=== PATIENT | female | born 1955 | race Caucasian/White ===

== ENCOUNTER 2020-02-28 23:46 | Inpatient (IN) | payer MEDICARE ==
[2020-02-29 00:21] LABS: #Eosinphils 0.1 thou/uL (0.0-0.7); #Lymphocytes 2.2 thou/uL (1.20-3.40); #Monocytes 0.6 thou/uL (0.11-0.59); #Neutrophils 6.7 thou/uL (1.40-6.50); %Basophils 0.5 % (0.0-1.0); %Eosinophils 0.8 % (0.0-10.0); %Monocytes 5.8 % (0.0-10.0); %Neutrophils 70.1 % (42.0-75.0); Hemoglobin 11.7 g/dL (12.0-16.0); Mean Corpuscular HGB CONC 34.5 g/dL (32.0-36.0); Mean Corpuscular Hemoglobin 32.4 pg (27.0-31.0); Platelet Count 167 thou/uL (130-400); RBC Distribution Width 11.4 % (11.5-14.5); Red Blood Cell (RBC) Count 3.61 mill/uL (4.20-5.40); White Blood Cell (WBC) Count 9.5 thou/uL (4.8-10.8)
[2020-02-29] MEDS ORDERED: Morphine 4 MG/ML VIAL ONE ×2 (00:24→01:06)
[2020-02-29 00:47] LABS: ALT (SGPT) 31 U/L (8-55); AST (SGOT) 67 U/L (5-34); Albumin 3.3 g/dL (3.4-4.8); Alkaline Phosphatase 55 U/L (40-110); Anion Gap 12 mmol/L (10-20); BUN (Urea Nitrogen) 11 mg/dL (9.8-20.1); Bilirubin, Total 0.5 mg/dL (0.2-1.2); Calc. Creatinine Clearance 0 mL/min (70-130); Calcium 6.8 mg/dL (7.8-10.44); Carbon Dioxide 18 mmol/L (23-31); Chloride 114 mmol/L (98-107); Glucose 83 mg/dL (80-115); Potassium 3.2 mmol/L (3.5-5.1); Protein, Total 5.3 g/dL (6.0-8.3); Sodium 141 mmol/L (136-145)
[2020-02-29 05:41] LABS: CKMB 75.6 ng/mL (0-6.6)
[2020-02-29 05:51] VITALS: BMI 29.2
[2020-02-29 06:34] LABS: Troponin I 14.255 ng/mL (< 0.028)
[2020-02-29] MEDS ORDERED: cloNIDine 0.1 MG TAB PO PRN (06:44)
[2020-02-29] MEDS ORDERED: Ondansetron PF 4 MG/2 ML Vial IVP PRN (06:44)
[2020-02-29] MEDS ORDERED: Acetaminophen 325 MG TAB PO PRN (06:44)
[2020-02-29] MEDS ORDERED: Promethazine HCl 12.5 MG in Sodium Chloride 0.9% 50 ML IVPB PRN (06:44)
[2020-02-29] MEDS ORDERED: HYDROcodone/Acetaminophen 5/325 mg Tablet PO PRN (06:44)
[2020-02-29] MEDS ORDERED: Labetalol HCl 100 MG/20 ML VIAL SLOW IVP PRN (06:44)
[2020-02-29] MEDS ORDERED: hydrALAZINE 20 MG/ML VIAL SLOW IVP PRN (06:44)
[2020-02-29] MEDS ORDERED: Electrolyte Replacement Protocol 1 EACH FS PRN (06:45)
[2020-02-29] MEDS ORDERED: Nitroglycerin 0.4 MG TAB (25 Tab Bottle) SL PRN (06:47)
--- NOTE | 2020-02-29 06:52 | PDOC.HHP ---
Hospitalist HPI - History of Present Illness Chest/back pain History of Present Illness: Patient is a 64 year old female with PMH hypothyroidism who presents as transfer from [facility] via EMS for chest pain. patient reports she has had chest pain for 3 nights. substernal, radiates to back, denies fever/sob/cough, does have nausea and dizziness. At outside ED, patient found to have troponin of 13, EKG NSR, given 325mg aspirin and lovenox 86mg SQ and transferred here for further workup and care. she had a stress test 10+ years ago that was negative, she has never seen a formal wear rental clerk. she has a family history of cardiac problems. here, troponin still elevated, patient pain improved /w nitropaste and toradol, patient admitted for further workup of chest pain and elevated cardiac enzymes. Hospitalist ROS - Review of Systems Constitutional: denies: fever, chills, sweats, weakness, malaise, other Eyes: denies: pain, vision change, conjunctivae inflammation, eyelid inflammation, redness, other ENT: denies: ear pain, ear discharge, nose pain, nose discharge, nose conge stion, mouth pain, mouth swelling, throat pain, throat swelling, other Respiratory: denies: cough, dry, shortness of breath, hemoptysis, SOB with excertion, pleuritic pain, sputum, wheezing, other Cardiovascular: reports: chest pain. denies: palpitations, orthopnea, paroxysmal noc. dyspnea, edema, light headedness, other Gastrointestinal: denies: nausea, vomiting, abdominal pain, diarrhea, constipation, melena, hematochezia, other Genitourinary: denies: dysuria, frequency, incontinence, hematuria, retention, other Musculoskeletal: denies: neck pain, shoulder pain, arm pain, back pain, hand pain, leg pain, foot pain, other Skin: denies: rash, lesions, wyatt, bruising, other Neurological: denies: weakness, numbness, incoordination, change in speech, confusion, seizures, other All other systems reviewed; all pertinent +/- noted in HPI/Subj - Medication Medications: Euthyrox ThuFeb 28, 2020 23:57 JESSICA iDck, Bobby tablet : Strength - 100 mcg : ORAL Patient Dose: 100 mcg Oral once a day. meloxicam ThuFeb 28, 2020 23:57 JESSICA Dick Jonathan tablet : Strength - 7.5 mg : ORAL Patient Dose: 7.5 mg Oral 2 times a day. cyclobenzaprine ThuFeb 28, 2020 23:58 JESSICA Dick Jonathan tablet : Strength - 10 mg : ORAL Patient Dose: 5 mg Oral As Needed. Benkelman 3 capsule ThuFeb 28, 2020 23:59 JESSICA Dick Jonathan capsule : ORAL Patient Dose: 500 mg Oral 2 times a day. vitamin B complex oral ThuFeb 28, 2020 23:59 JESSICA Dick Jonathan capsule : ORAL Patient Dose: 1 cap(s) Oral once a day. Vitamin C chewable tablet ThuFeb 29, 2020 00:00 JESSICA Dick Jonathan tablet,chewable : Strength - 500 mg : ORAL Patient Dose: 500 mg Oral once a day. Hospitalist History - Past Medical History Other Medical History: hypothyroidism djd - Past Surgical History Other Surgical History: Breast implants (1987) Partial hysterectomy (1989), Laminectomy (2003). - Family History Family History: reports: cardiac disorder - Social History Smoking Status: Former smoker - Exam General Appearance: NAD, awake alert Eye: PERRL, anicteric sclera ENT: normocephalic atraumatic, no oropharyngeal lesions, moist mucosa Neck: supple, symmetric, no JVD, no thyromegaly, no lymphadenopathy, no carotid bruit Heart: RRR, no murmur, no gallops, no rubs, normal peripheral pulses Respiratory: CTAB, no wheezes, no rales, no ronchi, normal chest expansion, no tachypnea, normal percussion Gastrointestinal: soft, non-tender, non-distended, normal bowel sounds, no palpable masses, no hepatomegaly, no splenomegaly, no bruit Extremities: no cyanosis, no clubbing, no edema Skin: normal turgor, no lesions, no rashes Neurological: cranial nerve grossly intact, normal sensation to touch, no weakness, no focal deficits, no new deficit Musculoskeletal: normal tone, normal strength, no muscle wasting Psychiatric: normal affect, normal behavior, A&O x 3 Hospitalist Results - Labs Result Diagrams: 02/29/20 00:13 02/29/20 00:13 Lab results: WBC 9.5 thou/uL (4.8-10.8) 02/29/20 00:13 Hgb 11.7 g/dL (12.0-16.0) L 02/29/20 00:13 Hct 33.9 % (36.0-47.0) L 02/29/20 00:13 MCV 94.0 fL (78.0-98.0) 02/29/20 00:13 Plt Count 167 thou/uL (130-400) 02/29/20 00:13 Neutrophils % 70.1 % (42.0-75.0) 02/29/20 00:13 Sodium 141 mmol/L (136-145) 02/29/20 00:13 Potassium 3.2 mmol/L (3.5-5.1) L 02/29/20 00:13 Chloride 114 mmol/L (98-107) H 02/29/20 00:13 Carbon Dioxide 18 mmol/L (23-31) L 02/29/20 00:13 BUN 11 mg/dL (9.8-20.1) 02/29/20 00:13 Creatinine 0.58 mg/dL (0.6-1.1) L 02/29/20 00:13 Glucose 83 mg/dL (80-115) 02/29/20 00:13 Calcium 6.8 mg/dL (7.8-10.44) L 02/29/20 00:13 Total Bilirubin 0.5 mg/dL (0.2-1.2) 02/29/20 00:13 AST 67 U/L (5-34) H 02/29/20 00:13 ALT 31 U/L (8-55) 02/29/20 00:13 Alkaline Phosphatase 55 U/L (40-110) 02/29/20 00:13 CK-MB (CK-2) 75.6 ng/mL (0-6.6) H* 02/29/20 00:13 Troponin I 14.255 ng/mL (< 0.028) H* 02/29/20 03:50 Serum Total Protein 5.3 g/dL (6.0-8.3) L 02/29/20 00:13 Albumin 3.3 g/dL (3.4-4.8) L 02/29/20 00:13 Additional comment: VITAL SIGNS Tue Feb 28, 2020 23:47 JESSICA Dick, Bobby BP: 150/80 (Left Arm) Pulse: 62 Resp: 10 Temp: 98.3 (Oral) O2 sat: 97 Time: 02/28/2020 23:47. labs, imaging, ed documents reviewed - EKG Interpretation EKG: nsr, 60 bpm, no acute ST changes Hospitalist H&P A/P - Plan Plan: Patient is a 64 year old female with PMH hypothyroidism who presents as transfer from [facility] via EMS for chest pain. # chest pain # NSTEMI - patient reports she has had chest pain for 3 nights. substernal, radiates to back, denies fever/sob/cough, does have nausea and dizziness. At outside ED, patient found to have troponin of 13, EKG NSR, given 325mg aspirin and lovenox 86mg SQ and transferred here for further workup and care. she had a stress test 10+ years ago that was negative, she has never seen a formal wear rental clerk. she has a family history of cardiac problems. here, troponin still elevated, patient pain improved /w nitropaste and toradol, patient admitted for further workup of chest pain and elevated cardiac enzymes. - admit to telemetry - ASA, statin, beta argenis - lovenox + pharmacy consult - consult cardiology - npo - nitropaste # hypothyroidism - TSH/t4 - resume home synthroid once med rec complete # DVT/GI ppx
[2020-02-29 07:25] LABS: Free T4 (Free Thyroxine) 0.94 ng/dL (0.70-1.48); Thyroid Stimulating Hormone 5.3826 uIU/mL (0.35-4.94)
[2020-02-29] MEDS ORDERED: Calcium Carbonate 500 MG ChewTAB PO PRN (07:30)
[2020-02-29] MEDS ORDERED: Loperamide HCl 2 MG CAP PO PRN (07:30)
[2020-02-29] MEDS ORDERED: Sodium Chloride 0.65% Nasal 44 ML BOT EA NARE PRN (07:30)
[2020-02-29] MEDS ORDERED: Cepastat Lozenges 1 LOZ PO PRN (07:30)
[2020-02-29] MEDS ORDERED: Potassium Chloride 40 MEQ in Sodium Chloride 0.9% 250 ML 250 ML IVPB SCH (07:30)
[2020-02-29] MEDS ORDERED: Loratadine 10 MG TAB PO PRN (07:30)
[2020-02-29] MEDS ORDERED: Zolpidem Tartrate 5 MG TAB PO PRN (07:30)
[2020-02-29] MEDS ORDERED: Bisacodyl 5 MG TAB PO PRN (07:30)
[2020-02-29] MEDS ORDERED: Ondansetron ODT 4 MG TAB PO PRN (07:30)
[2020-02-29] MEDS ORDERED: Senokot S 8.6-50 MG TAB PO PRN (07:30)
[2020-02-29] MEDS ORDERED: Diabetic Tussin 200 MG/10 ML UDCUP PO PRN (07:30)
[2020-02-29] MEDS: Aspirin 81 mg Enteric Coated Tablet PO SCH (08:48)
[2020-02-29] MEDS: Famotidine 20 MG TAB PO SCH (08:48)
[2020-02-29] MEDS: Metoprolol Tartrate 25 MG TAB PO SCH (08:49)
[2020-02-29] MEDS: Polyethylene Glycol 3350 17 GM Packet PO SCH (08:49)
[2020-02-29] MEDS ORDERED: Enoxaparin Sodium 80 MG/0.8 ML SYRINGE SC SCH (09:00)
[2020-02-29] MEDS ORDERED: Nitroglycerin 2% Ointment 1 INCH/1 GM Packet TOP SCH (09:00)
[2020-02-29 10:29] LABS: Critical Call Chem Troponin I RESULT DECREASING; Troponin I 10.909 ng/mL (< 0.028)
[2020-02-29] MEDS ORDERED: Communication Order-Pharmacy FS SCH (10:30)
--- NOTE | 2020-02-29 11:17 | PDOC.HOSPP ---
- Subjective Encounter Date: 02/29/20 Encounter Time: 07:10 Subjective: Patient seen and examined bedside today, patient has no chest pain at this point, patient is n.p.o. for cardiac catheter later on today - Objective Vital Signs & Weight: Vital Signs (12 hours) Temp Pulse Resp BP Pulse Ox 02/29/20 07:40 97.9 F 66 14 108/58 L 96 02/29/20 03:00 97.7 F 58 L 18 142/75 H 96 Weight Weight 186 lb 7 oz Result Diagrams: 02/29/20 00:13 02/29/20 00:13 Radiology Reviewed by me: Yes EKG Reviewed by me: Yes Hospitalist ROS - Review of Systems Constitutional: denies: fever, chills, sweats, weakness, malaise, other ENT: denies: ear pain, ear discharge, nose pain, nose discharge, nose congestion, mouth pain, mouth swelling, throat pain, throat swelling, other Respiratory: denies: cough, dry, shortness of breath, hemoptysis, SOB with excertion, pleuritic pain, sputum, wheezing, other Cardiovascular: denies: chest pain, palpitations, orthopnea, paroxysmal noc. dyspnea, edema, light headedness, other Gastrointestinal: denies: nausea, vomiting, abdominal pain, diarrhea, constipation, melena, hematochezia, other Genitourinary: denies: dysuria, frequency, incontinence, hematuria, retention, other Musculoskeletal: denies: neck pain, shoulder pain, arm pain, back pain, hand pain, leg pain, foot pain, other Skin: denies: rash, lesions, wyatt, bruising, other - Medication Medications: Active Medications Generic Name Dose Route Start Last Admin Trade Name Graham PRN Reason Stop Dose Admin Aspirin 81 mg 02/29/20 09:00 02/29/20 08:48 Aspirin 81 Mg Enteric Coated Tablet PO 81 mg DAILY KLAUDIA Administration Famotidine 20 mg 02/29/20 09:00 02/29/20 08:48 Famotidine 20 Mg Tab PO 20 mg BID KLAUDIA Administration Potassium Chloride 40 meq/ 270 mls @ 67.5 mls/hr 02/29/20 07:30 02/29/20 07:40 Sodium Chloride IVPB 02/29/20 11:29 270 mls NOW KLAUDIA Administration Metoprolol Tartrate 12.5 mg 02/29/20 09:00 02/29/20 08:49 Metoprolol Tartrate 25 Mg Tab PO 12.5 mg BID KLAUDIA Administration Nitroglycerin 0.5 inch 02/29/20 09:00 02/29/20 08:49 Nitroglycerin 2% Ointment 1 Inch/1 Gm Packet TOP 0.5 inch BID KLAUDIA Administration Polyethylene Glycol 17 gm 02/29/20 09:00 02/29/20 08:49 Polyethylene Glycol 3350 17 Gm Packet PO Not Given DAILY KLAUDIA - Exam General Appearance: NAD, awake alert Eye: PERRL, anicteric sclera ENT: normocephalic atraumatic, no oropharyngeal lesions Neck: supple, symmetric, no JVD, no thyromegaly Heart: RRR, no murmur, no gallops, no rubs Respiratory: no wheezes, no rales, no ronchi Gastrointestinal: soft, non-tender, non-distended, normal bowel sounds Extremities: no cyanosis, no clubbing, no edema Skin: normal turgor, no lesions Neurological: no focal deficits Musculoskeletal: normal tone, normal strength, no muscle wasting Psychiatric: normal affect, normal behavior Hosp A/P (1) Non-ST elevation MA (NSTEMI) Code(s): I21.4 - NON-ST ELEVATION (NSTEMI) MYOCARDIAL INFARCTION Status: Acute Plan: Patient is plan for cardiac cath today, continue echocardiography, continue goal-directed therapy including aspirin, statin, beta-argenis, patient is also on Lovenox (2) Hypothyroidism Code(s): E03.9 - HYPOTHYROIDISM, UNSPECIFIED Status: Chronic Qualifiers: Hypothyroidism type: unspecified Qualified Code(s): E03.9 - Hypothyroidism, unspecified Plan: Continue home dose of levothyroxine (3) Dyslipidemia Code(s): E78.5 - HYPERLIPIDEMIA, UNSPECIFIED Status: Chronic Plan: We have started Lipitor 40 mg p.o. nightly (4) Hypokalemia Code(s): E87.6 - HYPOKALEMIA Status: Acute Plan: Replace potassium chloride - Plan old records reviewed/req, DVT proph w/lovenox Echocardiography Cardiology to do cardiac cath Home medication reconciled Repeat labs tomorrow including lipid panel Continue goal-directed therapy for non-ST elevation MA
[2020-02-29] MEDS ORDERED: Cyclobenzaprine 10 MG TAB PO PRN (11:18)
--- NOTE | 2020-02-29 11:18 | CON ---
DATE OF CONSULTATION: HISTORY OF PRESENT ILLNESS: Mei Quevedo is a 64-year-old white female, who denies any previous cardiac problems or chest pain. Two nights ago, she states she was awakened approximately 3 in the morning with squeezing pain in her chest that lasted approximately 5 minutes and then resolved. She went back to sleep. Then, yesterday morning on February 27 at 3 a.m., she again awakened with the same pain, but it did not resolve. This continued all day long until she went to the [facility] Emergency Room in [place], [place]. She was found to have positive cardiac enzymes. While there, she was given a therapeutic dose of Lovenox at 9:30 p.m., nitroglycerin paste, and aspirin. Her pain essentially resolved and she was transferred here for further evaluation. PAST MEDICAL HISTORY: She denies any history of hypertension or diabetes. She states she has been told in the past that she had "borderline" high cholesterol. She has hypothyroidism. ALLERGIES: CODEINE. SOCIAL HISTORY: She smoked one pack per day, but states she stopped 8 days ago. She does not drink. FAMILY HISTORY: Father of OR at age 50, a brother of OR at age 55, and sisters had myocardial infarctions. REVIEW OF SYSTEMS: Ten-point review of systems is otherwise unremarkable. PHYSICAL EXAMINATION: VITAL SIGNS: Blood pressure 108/58; pulse of 66, sinus rhythm on the monitor. HEENT: PERRL. NECK: Supple. CHEST: Clear. CARDIAC: S1 and S2 normal without any S3, S4, or murmurs. Carotid upstrokes normal without bruits. ABDOMEN: Normal bowel sounds without tenderness or organomegaly. EXTREMITIES: Revealed no clubbing, cyanosis, or edema. NEUROLOGIC: Grossly intact. SKIN: Warm and dry. LABORATORY DATA: EKG reveals normal sinus rhythm with inferior T-wave inversion consistent with ischemia. Hemoglobin 11.7, hematocrit 33.9, white count 9500, platelets 167,000. Sodium 141, potassium 3.2, chloride 114, carbon dioxide 18, BUN 11, creatinine 0.58. CK-MB 75.6, troponin I is up to 14.255. TSH is elevated at 5.3826. However, free T4 is normal at 0.94. IMPRESSION: 1. Non-ST elevation myocardial infarction, probably inferior in location from EKG findings. 2. Former smoker, stopped 8 days ago. 3. Positive family history. 4. Probable hypercholesterolemia. 5. Hypothyroidism. PLAN: The situation was discussed with the patient. It was recommended that she undergo cardiac catheterization. Risks of catheterization were discussed including , myocardial infarction, dye reaction, vascular injury, CVA, transfusion, limb loss, renal loss, etc. We discussed risk of stent placement including , myocardial infarction, emergent CABG, restenosis, stent thrombosis, vessel perforation, etc. She has no history of gastrointestinal bleeding or stroke. She has no upcoming surgeries and it was recommended that a drug-eluting stent be placed if needed. Job ID: [id number] GE
[2020-02-29] MEDS ORDERED: Iopamidol 370 76% 100 ML VIAL ONE (13:27)
[2020-02-29] MEDS ORDERED: Iopamidol 370 76% 50 ML VIAL FS ONE (13:27)
[2020-02-29] MEDS ORDERED: Heparin 10,000 UNITS/ 10 ML VIAL ONE (13:55)
[2020-02-29] MEDS ORDERED: Fentanyl 100 MCG/2 ML VIAL ONE (14:21)
[2020-02-29] MEDS ORDERED: Midazolam HCl 2 mg/2 ml Vial ONE (14:21)
[2020-02-29] MEDS ORDERED: Bivalirudin 250 MG VIAL ONE (14:53)
[2020-02-29] MEDS ORDERED: TICAGRELOR 90 MG TABLET ONE (14:53)
[2020-02-29] MEDS ORDERED: Nitroglycerin 100MG/250ML BOT 250 ML ONE (14:54)
[2020-02-29] MEDS ORDERED: Morphine 2 MG/ML VIAL SLOW IVP PRN (15:27)
[2020-02-29] MEDS ORDERED: Sodium Chloride 0.9% 1,000 ML IV SCH (15:30)
[2020-02-29] MEDS ORDERED: HYDROcodone/Acetaminophen 5/325 mg Tablet ONE (16:34)
[2020-02-29] MEDS ORDERED: Cyclobenzaprine 10 MG TAB ONE (18:18)
[2020-02-29] MEDS ORDERED: Acetaminophen 325 MG TAB ONE (20:33)
[2020-02-29] MEDS ORDERED: FLU VACC QS2020-21(65YR UP)/PF 240 MCG/0.7 ML SYRINGE IM ONE (21:00)
[2020-03-01] MEDS: Atorvastatin Calcium 40 MG TAB PO SCH ×2 (02:48→21:10)
[2020-03-01] MEDS: Cholecalciferol 1,000 UNITS (25 MCG) TAB PO SCH ×3 (02:48→21:12)
[2020-03-01] MEDS: Famotidine 20 MG TAB PO SCH ×3 (02:49→21:11)
[2020-03-01] MEDS: Metoprolol Tartrate 25 MG TAB PO SCH (02:49)
[2020-03-01] MEDS: Levothyroxine Sodium 100 MCG TAB PO SCH (04:48)
[2020-03-01 05:52] LABS: Albumin 3.5 g/dL (3.4-4.8); Anion Gap 11 mmol/L (10-20); BUN (Urea Nitrogen) 14 mg/dL (9.8-20.1); Bilirubin, Total 0.9 mg/dL (0.2-1.2); Calc. Creatinine Clearance 94 mL/min (70-130); Calcium 8.2 mg/dL (7.8-10.44); Carbon Dioxide 24 mmol/L (23-31); Chloride 108 mmol/L (98-107); Globulin 2.4 g/dL (2.4-3.5); Glucose 82 mg/dL (80-115); Potassium 3.6 mmol/L (3.5-5.1); Protein, Total 5.9 g/dL (6.0-8.3); Sodium 139 mmol/L (136-145)
[2020-03-01 05:53] LABS: ALT (SGPT) 29 U/L (8-55); AST (SGOT) 50 U/L (5-34); Alkaline Phosphatase 58 U/L (40-110)
[2020-03-01 08:12] LABS: Cardiac Risk 4.8 (Less than 4.5)
[2020-03-01] MEDS: Aspirin 81 mg Enteric Coated Tablet PO SCH (09:28)
[2020-03-01] MEDS: TICAGRELOR 90 MG TABLET PO SCH ×2 (09:29→21:12)
[2020-03-01] MEDS: Polyethylene Glycol 3350 17 GM Packet PO SCH (09:30)
--- NOTE | 2020-03-01 10:00 | PDOC.HOSPP ---
- Subjective Encounter Date: 03/01/20 Encounter Time: 07:00 Subjective: Patient seen and examined bedside today, patient does not have any new complaint, no chest pain, no shortness of breath, patient had cardiac cath with PCI performed yesterday to mid RCA, - Objective Vital Signs & Weight: Vital Signs (12 hours) Temp Pulse Resp BP Pulse Ox 03/01/20 08:00 97.7 F 70 18 129/63 97 03/01/20 04:47 98.1 F 71 18 126/60 98 Weight Weight 186 lb 7 oz Result Diagrams: 02/29/20 00:13 03/01/20 04:12 EKG Reviewed by me: Yes (Normal sinus rhythm) Hospitalist ROS - Review of Systems Constitutional: denies: fever, chills, sweats, weakness, malaise, other ENT: denies: ear pain, ear discharge, nose pain, nose discharge, nose conges tion, mouth pain, mouth swelling, throat pain, throat swelling, other Respiratory: denies: cough, dry, shortness of breath, hemoptysis, SOB with excertion, pleuritic pain, sputum, wheezing, other Cardiovascular: denies: chest pain, palpitations, orthopnea, paroxysmal noc. dyspnea, edema, light headedness, other Gastrointestinal: denies: nausea, vomiting, abdominal pain, diarrhea, constipation, melena, hematochezia, other Genitourinary: denies: dysuria, frequency, incontinence, hematuria, retention, other Musculoskeletal: denies: neck pain, shoulder pain, arm pain, back pain, hand pain, leg pain, foot pain, other - Medication Medications: Active Medications Generic Name Dose Route Start Last Admin Trade Name Freq PRN Reason Stop Dose Admin Acetaminophen 650 mg 02/29/20 06:44 02/29/20 20:35 Acetaminophen 325 Mg Tab PO 650 mg Q4H PRN Administration Headache/Fever/Mild Pain (1-3) Hydrocodone Bitart/Acetaminophen 1 tab 02/29/20 06:44 02/29/20 16:34 Hydrocodone/Acetaminophen 5/325 Mg Tablet PO 1 tab Q4H PRN Administration Moderate Pain (4-6) Aspirin 81 mg 02/29/20 09:00 03/01/20 09:28 Aspirin 81 Mg Enteric Coated Tablet PO 81 mg DAILY KLAUDIA Administration Atorvastatin Calcium 40 mg 02/29/20 21:00 03/01/20 02:48 Atorvastatin Calcium 40 Mg Tab PO Not Given HS KLAUDIA Cholecalciferol 2,000 units 02/29/20 21:00 03/01/20 09:29 Cholecalciferol 1,000 Units (25 Mcg) Tab PO 2,000 units BID KLAUDIA Administration Cyclobenzaprine HCl 10 mg 02/29/20 11:18 02/29/20 18:19 Cyclobenzaprine 10 Mg Tab PO 10 mg TIDPRN PRN Administration Pain Famotidine 20 mg 02/29/20 09:00 03/01/20 09:29 Famotidine 20 Mg Tab PO 20 mg BID KLAUDIA Administration Levothyroxine Sodium 100 mcg 03/01/20 06:00 03/01/20 04:48 Levothyroxine Sodium 100 Mcg Tab PO 100 mcg 0600 KLAUDIA Administration Polyethylene Glycol 17 gm 02/29/20 09:00 03/01/20 09:30 Polyethylene Glycol 3350 17 Gm Packet PO Not Given DAILY KLAUDIA Ticagrelor 90 mg 03/01/20 09:00 03/01/20 09:29 Ticagrelor 90 Mg Tablet PO 90 mg BID KLAUDIA Administration - Exam General Appearance: NAD, awake alert Eye: PERRL, anicteric sclera ENT: normocephalic atraumatic, no oropharyngeal lesions Neck: supple, symmetric, no JVD, no thyromegaly Heart: RRR, no murmur, no gallops, no rubs Respiratory: no wheezes, no rales, no ronchi Gastrointestinal: soft, non-tender, non-distended, normal bowel sounds Extremities: no cyanosis, no clubbing, no edema Skin: normal turgor, no lesions Neurological: no focal deficits Musculoskeletal: normal tone, normal strength, no muscle wasting Psychiatric: normal affect, normal behavior, A&O x 3 Hosp A/P (1) Non-ST elevation CT (NSTEMI) Code(s): I21.4 - NON-ST ELEVATION (NSTEMI) MYOCARDIAL INFARCTION Status: Acute Plan: Patient is currently on aspirin, Brilinta, Lipitor 40 mg p.o. nightly, metoprolol 12.5 mg twice daily, Patient is status post cardiac cath with PCI to mid RCA (2) Hypothyroidism Code(s): E03.9 - HYPOTHYROIDISM, UNSPECIFIED Status: Chronic Qualifiers: Hypothyroidism type: unspecified Qualified Code(s): E03.9 - Hypothyroidism, unspecified Plan: Continue levothyroxine (3) Dyslipidemia Code(s): E78.5 - HYPERLIPIDEMIA, UNSPECIFIED Status: Chronic Plan: Continue Lipitor (4) Hypokalemia Code(s): E87.6 - HYPOKALEMIA Status: Resolved - Plan old records reviewed/req Echocardiography pending Continue goal-directed therapy for non-ST relation CT Plan for discharge to home tomorrow Continue cardiac rehab
[2020-03-02] MEDS: Levothyroxine Sodium 100 MCG TAB PO SCH (06:12)
[2020-03-02] MEDS: Famotidine 20 MG TAB PO SCH (08:42)
[2020-03-02] MEDS: Aspirin 81 mg Enteric Coated Tablet PO SCH (08:42)
[2020-03-02] MEDS: Polyethylene Glycol 3350 17 GM Packet PO SCH (08:42)
[2020-03-02] MEDS: TICAGRELOR 90 MG TABLET PO SCH (08:42)
[2020-03-02] MEDS: Cholecalciferol 1,000 UNITS (25 MCG) TAB PO SCH (08:42)
[2020-03-02] MEDS ORDERED: Metoprolol Tartrate 25 MG TAB PO SCH (09:00)
--- NOTE | 2020-03-02 10:06 | PDOC.DS.DS ---
Provider - Provider Date of Admission: 02/29/20 01:43 Admitting Provider: Alfredo Deleon MD Primary Care Physician: OUT OF TOWN Course - Hospital Course Hospital Course: History on admission- 64 year old female with PMH hypothyroidism who presents as transfer from [facility] via EMS for chest pain. patient reports she has had chest pain for 3 nights. substernal, radiates to back, denies fever/sob/cough, does have nausea and dizziness. At outside ED, patient found to have troponin of 13, EKG NSR, given 325mg aspirin and lovenox 86mg SQ and transferred here for further workup and care. she had a stress test 10+ years ago that was negative, she has never seen a exotic dancer. she has a family history of cardiac problems. here, troponin still elevated, patient pain improved /w nitropaste and toradol, patient admitted for further workup of chest pain and elevated cardiac enzymes. After admission patient was treated with the optimal medical therapy for non-ST elevation OR, she was given aspirin, Lovenox, statin therapy, patient's troponin was going up so cardiology was consulted, echocardiography showed diastolic dysfunction, patient had a cardiac catheterization which showed RCA stenosis and patient had mid RCA drug-eluting stent placed, Patient was kept on low-dose of metoprolol but patient became bradycardic so that medication was discontinued, because of bradycardic episode patient is not given any beta-argenis therapy on discharge. Cardiology agreed with this decision, Patient remained stable subsequently, telemetry remained unremarkable other than bradycardia, cardiology cleared her for discharge as well. Patient is completely asymptomatic at this point. All new medication prescription given to her Resuscitation Status: 02/29/20 06:44 Resuscitation Status Routine Resuscitation Status: FULL: Full Resuscitation - Labs Lab Results: 02/29/20 00:13 03/01/20 04:12 Abnormal Lab Results - Last 48 hrs 02/29/20 09:49: Troponin I 10.909 H* 02/29/20 18:24: Activated Clotting Time 164 H 03/01/20 04:12: Chloride 108 H, AST 50 H, Serum Total Protein 5.9 L 03/01/20 04:12: Triglycerides 240 H Additional comments: Cardiac catheterization showed two-vessel coronary artery disease, impaired ventricular function, successful PCI with a drug-eluting stent to mid RCA - Diagnostic Interpretation Other Status: image reviewed by me Additional comments: Echocardiography showed diastolic dysfunction - Physical Exam Vitals: Vital Signs (12 hours) Temp Pulse Resp BP BP Pulse Ox 03/02/20 05:59 63 126/66 03/02/20 04:48 97.9 F 83 20 103/62 98 Weight Weight 186 lb 8 oz Physical Exam: The patient was seen and examined on the day of discharge. General patient is currently alert and awake no acute distress Head normocephalic atraumatic Neck supple no JVD no meningeal signs of irritation Lungs clear to auscultation without any rhonchi or rales Cardiac S1-S2 regular, no murmur no gallop no rub Abdomen soft, bowel sounds present, nontender nondistended no organomegaly no mass Extremity no edema good distal pulsation Skin no skin rash Hematological system no lymphadenopathy Neurologic nonfocal examination Problem - Problem (1) Non-ST elevation [place] (NSTEMI) Code(s): I21.4 - NON-ST ELEVATION (NSTEMI) MYOCARDIAL INFARCTION Status: Acute (2) Hypothyroidism Code(s): E03.9 - HYPOTHYROIDISM, UNSPECIFIED Status: Chronic Qualifiers: Hypothyroidism type: unspecified Qualified Code(s): E03.9 - Hypothyroidism, unspecified (3) Dyslipidemia Code(s): E78.5 - HYPERLIPIDEMIA, UNSPECIFIED Status: Chronic (4) Hypokalemia Code(s): E87.6 - HYPOKALEMIA Status: Resolved Plan - Discharge Medications Prescriptions: Nitroglycerin [Nitrostat] 0.4 mg SL Q5MIN PRN #25 tab PRN Reason: Chest Pain Ticagrelor [Brilinta] 90 mg PO BID #60 tab Aspirin [Ecotrin Low Strength] 81 mg PO DAILY #30 tab Atorvastatin Calcium [Lipitor] 40 mg PO HS #30 tab Home Medications: Medication Instructions Recorded Confirmed Type B-Complex with Vitamin C [Super B 1 cap PO DAILY 02/29/20 02/29/20 History with Vitamin C] Cholecalciferol (Vitamin D3) 2,000 unit PO BID 02/29/20 02/29/20 History [Vitamin D3] Cyclobenzaprine [Flexeril] 10 mg PO TID PRN 02/29/20 02/29/20 History Levothyroxine Sodium [Euthyrox] 100 mcg PO DAILY 02/29/20 02/29/20 History Lindsay-3 Fatty Acids [Lindsay-3] 500 mg PO DAILY 02/29/20 02/29/20 History Aspirin [Ecotrin Low Strength] 81 mg PO DAILY #30 tab 03/02/20 Rx Atorvastatin Calcium [Lipitor] 40 mg PO HS #30 tab 03/02/20 Rx Nitroglycerin [Nitrostat] 0.4 mg SL Q5MIN PRN #25 tab 03/02/20 Rx Ticagrelor [Brilinta] 90 mg PO BID #60 tab 03/02/20 Rx Allergies: codeine Allergy (Verified 02/29/20 07:29) PER ER NOTES - Discharge Instructions Activity:: Activity as Tolerated Nourishment:: Heart Healthy Diet Therapies:: Not Applicable Equipment/Supplies:: Not Applicable IV Therapy:: Not Applicable - Follow up Plan Referrals: [facility] [Other] (Your information will be faxed to them for f/u by facility. If not heard from within a week, please call to check on referral.) Benedicto Montague MD [Active] - 3-4 Weeks (Please call office to schedule a follow up appointment and to schedule a Cardiac PET scan for 1 month from Discharge.) Saida Barnett MD [MD Not on Staff] - 03/06/20 3:00 pm Disposition: HOME Quality - Care Measures CORE MEASURES:: N/A (Contraindication-in view of non-ST elevation OR patient is not given beta-argenis therapy because of bradycardia, patient is not given DUNIA inhibitor or ARB because of relatively low blood pressure, all this medication will be started after discharge upon follow-up visit with the cardiology)
[2020-03-02 11:04] VITALS: TEMP 97.5
[2020-03-02 11:51] VITALS: BP 134/63
--- NOTE | 2020-03-03 13:52 | EKG ---
Test Reason : Blood Pressure : / mmHG Vent. Rate : 060 BPM Atrial Rate : 060 BPM P-R Int : 150 ms QRS Dur : 072 ms QT Int : 482 ms P-R-T Axes : 060 012 -01 degrees QTc Int : 482 ms Normal sinus rhythm T wave abnormality, consider inferior ischemia Prolonged QT Abnormal ECG Confirmed by ABILIO MEJIA ([id number]), publishing editor FERCHO ALTMAN ([id number]) on 03/03/2020 1:51:46 PM Referred By: Confirmed By:ABILIO MEJIA
== END 2020-03-02 12:35 | disposition home or self-care (01) | DRG 247 ==
LOC: ERS 23:46 → 2NO 02-29 01:43
PROVIDERS: ADMIT Internal Medicine; ATTEND Internal Medicine
PROC: 027034Z Dilation of Coronary Artery, One Artery with Drug-eluting Intraluminal Device, Percutaneous Approach (ICD-10-PCS; principal; 2020-02-29)
PROC: 4A023N7 Measurement of Cardiac Sampling and Pressure, Left Heart, Percutaneous Approach (ICD-10-PCS; 2020-02-29)
PROC: B2111ZZ Fluoroscopy of Multiple Coronary Arteries using Low Osmolar Contrast (ICD-10-PCS; 2020-02-29)
PROC: B2151ZZ Fluoroscopy of Left Heart using Low Osmolar Contrast (ICD-10-PCS; 2020-02-29)
PROC: 4A033BC Measurement of Arterial Pressure, Coronary, Percutaneous Approach (ICD-10-PCS; 2020-02-29)
DX: I21.4 Non-ST elevation (NSTEMI) myocardial infarction (principal); E03.9 Hypothyroidism, unspecified; M19.90 Unspecified osteoarthritis, unspecified site; E87.6 Hypokalemia; E78.00 Pure hypercholesterolemia, unspecified; Z88.5 Allergy status to narcotic agent; Z79.899 Other long term (current) drug therapy; Z90.710 Acquired absence of both cervix and uterus; Z87.891 Personal history of nicotine dependence
CPT/HCPCS: 36415; 80053; 80061; 82553; 84439; 84443; 84484; 85025; 85347; 92928; 93005; 93010; 93306; 93458; 93798; 96374; 96376; 97139; 99152; 99153; C1874; C9600; J0583; J1644; J2250; J2270; J3010; J3480; J7050; Q9967